=== PATIENT | male | born 1935 | race Caucasian/White ===

== ENCOUNTER 2017-02-04 11:52 | Outpatient (CLI) | payer MEDICARE ==
--- NOTE | 2017-02-04 14:41 | ULT ---
BILATERAL LOWER EXTREMITY VENOUS DOPPLER ULTRASOUND: Date: 02/04/17 HISTORY: Bilateral lower extremity edema, swelling. TECHNIQUE: Jimenez scale ultrasound with color flow and spectral Doppler imaging of the deep venous systems of the lower extremities was performed bilaterally. FINDINGS: There is good flow, compression, and augmentation noted in the common femoral, femoral, deep femoral , popliteal, posterior tibial, and greater saphenous veins on either side. A left-sided avascular popliteal cyst is seen measuring 4.8 x 1.0 x 1.0 cm, consistent with Gauthier's cyst. A 2.5 cm lymph node is seen in the left groin. IMPRESSION: 1. No evidence of deep venous thrombosis in either lower extremity. 2. Left Gauthier's cyst. POS: [facility]
== END 2017-02-04 11:53 | disposition home or self-care (01) ==
LOC: NAV ULT 11:52
PROVIDERS: ATTEND Podiatrist Foot & Ankle Surgery
DX: R60.9 Edema, unspecified (principal); M79.606 Pain in leg, unspecified
CPT/HCPCS: 93970

== ENCOUNTER 2017-03-02 13:06 | Outpatient (CLI) | payer MEDICARE ==
[2017-03-02 13:27] LABS: #Basophils 0.1 thou/uL (0.0-0.2); #Eosinphils 0.3 thou/uL (0.0-0.7); #Lymphocytes 2.8 thou/uL (1.20-3.40); #Monocytes 0.6 thou/uL (0.11-0.59); #Neutrophils 3.5 thou/uL (1.40-6.50); %Eosinophils 3.7 % (0.0-10.0); %Lymphocytes 38.4 % (21.0-51.0); %Monocytes 8.2 % (0.0-10.0); %Neutrophils 48.7 % (42.0-75.0); Hemoglobin 14.2 g/dL (14.0-18.0); Mean Corpuscular HGB CONC 30.7 g/dL (32.0-36.0); Mean Corpuscular Hemoglobin 28.6 pg (27.0-31.0); Platelet Count 199 thou/uL (130-400); RBC Distribution Width 14.5 % (11.5-14.5); Red Blood Cell (RBC) Count 4.99 mill/uL (4.70-6.10); White Blood Cell (WBC) Count 7.3 thou/uL (4.8-10.8)
[2017-03-02 13:45] LABS: ALT (SGPT) 13 U/L (0-55); AST (SGOT) 18 U/L (5-34); Albumin 4.1 g/dL (3.4-4.8); Alkaline Phosphatase 89 U/L (40-150); Anion Gap 16 mmol/L (10-20); BUN (Urea Nitrogen) 19 mg/dL (8.4-25.7); Bilirubin, Direct 0.3 mg/dL (0.1-0.3); Bilirubin, Total 0.8 mg/dL (0.2-1.2); Calc. Creatinine Clearance 0 mL/min (70-130); Calcium 8.9 mg/dL (7.8-10.44); Carbon Dioxide 24 mmol/L (23-31); Cardiac Risk 4.7 (Less than 4.5); Chloride 103 mmol/L (98-107); Cholesterol 165 mg/dL (< 200 Desired); Estimated GFR-MDRD 70; Glucose 97 mg/dL (83-110); HDL Cholesterol 35 mg/dL (>60 Neg Risk); LDL Cholesterol, Calculated 108 mg/dL; Potassium 4.6 mmol/L (3.5-5.1); Protein, Total 7.3 g/dL (5.8-8.1); Sodium 138 mmol/L (136-145); Triglycerides 108 mg/dL (Less than 150)
[2017-03-02 13:46] LABS: Hemoglobin A1c 5.7 % (4.0-6.0)
== END 2017-03-02 13:07 | disposition home or self-care (01) ==
LOC: NAVSJIPCSP 13:06
PROVIDERS: ATTEND Family Medicine
DX: E78.00 Pure hypercholesterolemia, unspecified (principal); G61.0 Guillain-Barre syndrome; I49.5 Sick sinus syndrome; R97.20 Elevated prostate specific antigen [PSA]; K21.9 Gastro-esophageal reflux disease without esophagitis; Z79.899 Other long term (current) drug therapy
CPT/HCPCS: 36415; 80048; 80061; 80076; 83036; 84443; 85025

== ENCOUNTER 2017-07-09 09:29 | Outpatient (CLI) | payer MEDICARE ==
[2017-07-09 12:01] LABS: #Basophils 0.1 thou/uL (0.0-0.2); #Eosinphils 0.3 thou/uL (0.0-0.7); #Monocytes 0.8 thou/uL (0.11-0.59); #Neutrophils 5.2 thou/uL (1.40-6.50); %Basophils 1.1 % (0.0-1.0); %Eosinophils 3.6 % (0.0-10.0); %Lymphocytes 31.5 % (21.0-51.0); %Monocytes 8.9 % (0.0-10.0); %Neutrophils 54.9 % (42.0-75.0); Hemoglobin 15.1 g/dL (14.0-18.0); Mean Corpuscular HGB CONC 31.2 g/dL (32.0-36.0); Mean Corpuscular Hemoglobin 28.3 pg (27.0-31.0); Mean Corpuscular Volume 90.7 fl (80.0-94.0); Mean Platelet Volume 7.2 fL (7.4-10.4); Platelet Count 210 thou/uL (130-400); Red Blood Cell (RBC) Count 5.32 mill/uL (4.70-6.10); White Blood Cell (WBC) Count 9.4 thou/uL (4.8-10.8)
[2017-07-09 12:13] LABS: ALT (SGPT) 16 U/L (8-55); AST (SGOT) 22 U/L (5-34); Albumin 4.2 g/dL (3.4-4.8); Alkaline Phosphatase 99 U/L (40-150); Anion Gap 19 mmol/L (10-20); BUN (Urea Nitrogen) 21 mg/dL (8.4-25.7); Bilirubin, Direct 0.4 mg/dL (0.1-0.3); Calc. Creatinine Clearance 0 mL/min (70-130); Calcium 9.2 mg/dL (7.8-10.44); Carbon Dioxide 21 mmol/L (23-31); Cardiac Risk 4.5 (Less than 4.5); Chloride 101 mmol/L (98-107); Cholesterol 177 mg/dl (< 200 Desired); Estimated GFR-MDRD 67; Glucose 95 mg/dL (83-110); HDL Cholesterol 39 mg/dL (>60 Neg Risk); LDL Cholesterol, Calculated 115 mg/dL; Potassium 4.5 mmol/L (3.5-5.1); Protein, Total 7.7 g/dL (5.8-8.1); Sodium 136 mmol/L (136-145); Triglycerides 115 mg/dL (Less than 150)
[2017-07-09 12:28] LABS: PSA-Symptomatic (DIAGNOSTIC) 7.63 ng/mL (0-4.0); Thyroid Stimulating Hormone 2.4415 uIU/mL (0.35-4.94)
[2017-07-09 12:29] LABS: Bilirubin Negative (Negative); Blood, Urine Negative (Negative); Clarity Clear (Clear); Glucose, Urine (Dipstick) Negative (Negative); Leukocyte Moderate (Negative); Nitrite Negative (Negative); Protein, Urine (Dipstick) Negative (Neg-Trace); Urobilinogen 0.2 mg/dL (0.2-1.0); pH, Urine 5.5 (5.0-9.0)
[2017-07-09 12:40] LABS: RBC/HPF 0-3 HPF (0-3); Squamous Epithelial 0-3 HPF (0-3)
[2017-07-09 12:41] LABS: Bacteria/HPF Rare-Few HPF (None Seen)
== END 2017-07-09 09:30 | disposition home or self-care (01) ==
LOC: NAVSJIPCSP 09:29
PROVIDERS: ATTEND Family Medicine
DX: Z12.5 Encounter for screening for malignant neoplasm of prostate (principal); E03.9 Hypothyroidism, unspecified; G61.0 Guillain-Barre syndrome; Z79.899 Other long term (current) drug therapy; E78.00 Pure hypercholesterolemia, unspecified; R97.20 Elevated prostate specific antigen [PSA]
CPT/HCPCS: 36415; 80048; 80061; 80076; 81003; 81015; 83036; 84153; 84443; 85025; 87077; 87086

== ENCOUNTER 2019-07-20 11:53 | Outpatient (CLI) | payer MEDICARE ==
--- NOTE | 2019-07-20 14:03 | RAD ---
CHEST 1 VIEW RIGHT RIBS 2 VIEWS: Date: 07/20/19 HISTORY: Right rib pain. Hit ribs on car door and fell. FINDINGS: CHEST 1 VIEW: Upper normal cardiac silhouette. Pulmonary vessels are prominent. Costophrenic angles are clear. Ther e are diffuse interstitial opacities throughout the lung parenchyma. More focal infiltrate in the rig ht lung base is suspected. There is a calcified granuloma in the left upper lobe. Linear opacities in the right mid lung likely represent scar or atelectasis. No pneumothorax or osseous abnormalities. RIGHT RIB SERIES: No fracture. No cortical irregularly or periosteal reaction. IMPRESSION: 1. No fracture. 2. Interstitial opacities which may represent chronic change. Edema or infiltrate cannot be excluded . More focal opacity in the right lower lobe may represent atelectasis, pneumonia, or aspiration. Cor relate clinically. POS: [facility]
== END 2019-07-20 11:54 | disposition home or self-care (01) ==
LOC: NAV RAD 11:53
PROVIDERS: ATTEND Nurse Practitioner Adult Health
DX: R07.81 Pleurodynia (principal); R91.8 Other nonspecific abnormal finding of lung field

== ENCOUNTER 2019-08-06 12:54 | Emergency (ER) | payer MEDICARE ==
[2019-08-06] MEDS ORDERED: Acetaminophen 325 MG TAB ONE (13:39)
--- NOTE | 2019-08-06 14:21 | CT ---
CT lumbar spine noncontrast HISTORY: Fall. Low back pain. FINDINGS: Mild compression of the L3 superior endplate is unchanged from the CT abdomen exam in 2016. Other vertebral body heights and alignment are maintained. Osteophytosis throughout the vertebral bodies and facets. Degenerative changes including central canal stenosis that is most severe at the L 2-3 and L3-4 levels. Prominent calcification throughout the arterial structures. Mild fusiform ectasia of the lower abdomi nal aorta. Diverticula arise from the partially visualized sigmoid colon. No inflammatory changes evident. IMPRESSION: Chronic mild compression of the L3 superior endplate. No acute osseous abnormalities are demonstrated. Degenerative changes including significant central canal stenoses. Atherosclerosis. Diverticulosis.
== END 2019-08-06 15:01 | disposition home or self-care (01) ==
LOC: NAV ERS 12:54
DX: M54.5 Low back pain (principal); E03.9 Hypothyroidism, unspecified; G47.30 Sleep apnea, unspecified; Z87.891 Personal history of nicotine dependence; Z79.82 Long term (current) use of aspirin; Z79.899 Other long term (current) drug therapy; W01.198A Fall on same level from slipping, tripping and stumbling with subsequent striking against other object, initial encounter
CPT/HCPCS: 72131; 93005

== ENCOUNTER 2020-03-12 15:15 | Emergency (ER) | payer MEDICARE ==
[2020-03-12] MEDS ORDERED: traMADol HCl 50 MG TAB ONE (16:30)
--- NOTE | 2020-03-12 16:42 | RAD ---
LUMBAR SPINE THREE VIEWS: History: Back pain. Comparison: 08-06-19 CT examination. FINDINGS: The bones are diffusely demineralized. There is some minimal loss of vertebral body height involving the L1 vertebral body superior endplate. This has developed since the previous exam. The compression change involving the superior endplate at L3 is similar to the prior study, slightly increased cuppin g to the superior endplate of L4. No wedge shaped compression change. Pedicles appear intact. IMPRESSION: Mild compression changes of superior endplates of L1 and L4, more pronounced changes of L3. Changes a t L1 and L4 have minimally changed as compared to the 2019 CT examination. POS: [facility]
== END 2020-03-12 16:40 | disposition home or self-care (01) ==
LOC: NAV ERS 15:15
DX: S61.411A Laceration without foreign body of right hand, initial encounter (principal); S34.101A Unspecified injury to L1 level of lumbar spinal cord, initial encounter; S34.104A Unspecified injury to L4 level of lumbar spinal cord, initial encounter; M85.88 Other specified disorders of bone density and structure, other site; M54.5 Low back pain; G47.30 Sleep apnea, unspecified; E03.9 Hypothyroidism, unspecified; Z87.891 Personal history of nicotine dependence; Z79.82 Long term (current) use of aspirin; Z79.899 Other long term (current) drug therapy
CPT/HCPCS: 72100

== ENCOUNTER 2020-08-07 15:37 | Outpatient (CLI) | payer MEDICARE ==
[2020-08-07 16:02] LABS: Digoxin 0.81 ng/mL (0.8-2.0)
== END 2020-08-07 15:38 | disposition home or self-care (01) ==
LOC: NAV LABSP 15:37
PROVIDERS: ATTEND Family Medicine
DX: I69.354 Hemiplegia and hemiparesis following cerebral infarction affecting left non-dominant side (principal); I48.91 Unspecified atrial fibrillation; I50.9 Heart failure, unspecified
CPT/HCPCS: 80162